=== PATIENT | male | born 2000 | race African-American/Black ===

== ENCOUNTER 2022-12-06 19:30 | Emergency (ER) | payer MEDICAID, SELFPAY ==
[2022-12-06 19:31] VITALS: BP 110/80; PULSE 85; RESP 16; TEMP 36.7; O2SAT 99
[2022-12-06 19:35] VITALS: BP 110/80; PULSE 85; RESP 16; O2SAT 99
--- NOTE | 2022-12-06 19:46 | EXP.UTC ---
Discharge Plan Disposition Chief Complaint: Wound/Laceration Referrals Follow up/Referrals: Provider,Referral, MD [Primary Care Provider] - See instructions Discharge ED Provider: Ta (ED)Rajinder [facility] General Stated complaint: ao 12/06, left arm laceration Mode of Arrival: Ambulatory Source of Information: Parent(s) Time Seen by Provider: 12/06/22 19:46 Description of Symptoms (Recalled from Triage Doc. by RN): mother states pt got ahold of picture frame and has a laceration to lt forearm History of Present Illness Provider Complaint: Mother states that she was told he took apart a picture frame and not sure what may have cut him but she suspects it was a staple that may have cut him on his left forearm States that she was not around him and another child came and got her and she noticed the laceration on his forearm and wrapped it up in a towel and brought him in Related Data Allergies Allergy/AdvReac Type Severity Reaction Status Date / Time No Known Allergies Allergy Verified 12/06/22 19:52 [facility] Disclaimer: The information contained in this section may have been updated after the patient was seen, as this information can be updated by other users. Social History Smoking Status: Unknown if ever smoked alcohol intake: never current occupational status: other Travel in the last 8 weeks: None ROS Obtained: Yes All systems reviewed & no additional complaints except as documented and Yes Systems reviewed as appropriate & no additional complaints except as documented Constitutional Constitutional: Reports system reviewed and no additional complaints, except as documented and Reports as per HPI ENT Ears, Nose, Mouth, and Throat: Reports system reviewed and no additional complaints, except as documented and Reports as per HPI Cardiovascular Cardiovascular: Reports system reviewed and no additional complaints, except as documented and Reports as per HPI Respiratory Respiratory: Reports system reviewed and no additional complaints, except as documented and Reports as per HPI Integumentary/Breasts Skin/Breast: Reports system reviewed and no additional complaints, except as documented and Reports as per HPI Comments: laceration to left forearm Physical Exam General General appearance: alert and in no apparent distress Respiratory Respiratory exam: Present normal lung sounds bilaterally; Absent respiratory distress or wheezes Cardiovascular Cardiovascular exam: Present regular rate, normal rhythm and normal heart sounds Expanded Upper Extremity Exam Left: L/R Arms Top View: 1. Approx 6cm laceration noted, that was gapped open with no active bleeding Neurological Exam Neurological exam: Present alert, oriented X3 and normal gait Medical Decision Making Lito Inquiry Pt receiving controlled substance: No Lito was queried for this patient: No Vital Signs: 12/06/22 19:35 Pulse Rate [Right] 85 Respiratory Rate 16 Blood Pressure [Right Arm] 110/80 Blood Pressure Mean [Right Arm] 90 02 Sat by Pulse Oximetry 99 Medical Decision Narrative: Patient has large laceration to left forearm that was gaped open and appeared to complex due to multiple layer skin evolvement and adipose tissue noted, therefore discussed with mother and will transfer back to the ED for further evaluation and closure Mother agreed Called ED spoke with Lashay and patient was moved to room 6
--- NOTE | 2022-12-06 19:52 | XR_ITS ---
PROCEDURE INFORMATION: Exam: XR Left Forearm Exam date and time: 12/06/2022 8:13 PM Age: 22 years old Clinical indication: Injury or trauma; Other: Laceration; Arm, lower; Left TECHNIQUE: Imaging protocol: Radiologic exam of the left forearm. Views: 2 views. COMPARISON: No relevant prior studies available. FINDINGS: Bones/joints: No acute fracture or dislocation. Soft tissues: 3.7 x 1.4 cm ovoid hypodensity along the ventral surface of the forearm. IMPRESSION: 3.7 x 1.4 cm ovoid hypodensity along the ventral surface of the forearm compatible with the provided history of trauma. Superimposed infection should be clinically excluded.
--- NOTE | 2022-12-06 20:25 | HMH.EDWNDL ---
Discharge Plan Disposition Patient Disposition: Home, Self-Care Chief Complaint: Wound/Laceration Referrals Follow up/Referrals: Provider,Referral, MD [Primary Care Provider] - See instructions Clinical Impressions Clinical Impression: Laceration Instructions Patient Instructions: DI for Laceration Repair Discharge ED Provider: Ta (ED),Rajinder Walker Wound/Laceration HPI General Chief Complaint: Wound/Laceration Stated Complaint: ao 12/06, left arm laceration Time Seen by Provider: 12/06/22 19:46 Mode of Arrival: Ambulatory Source of Information: Parent(s) Limitations: No Limitations Description of Symptoms (Recalled from ER Triage Doc. by RN): mother states pt got ahold of picture frame and has a laceration to lt forearm History of Present Illness HPI narrative: laceration lt forearm on edge or frame - no glass Onset (ago): hour(s) Extremity Location: Left: forearm Place: home Patient tetanus UTD: No Context: accidental Related Data Allergies Allergy/AdvReac Type Severity Reaction Status Date / Time No Known Allergies Allergy Verified 12/06/22 19:[address] [facility] Disclaimer: The information contained in this section may have been updated after the patient was seen, as this information can be updated by other users. Social History (Updated 12/06/22 @ 20:04 by Kamla George APRN) Smoking Status: Unknown if ever smoked alcohol intake: never current occupational status: other Travel in the last 8 weeks: None ROS Obtained: Yes All systems reviewed & no additional complaints except as documented Physical Exam General General appearance: alert and in no apparent distress Head Head exam: normocephalic Eye Eye exam: Present PERRL and EOMI ENT ENT exam: Present mucous membranes moist Neck Neck exam: Present trachea midline Respiratory Respiratory exam: Absent respiratory distress Cardiovascular Cardiovascular exam: Present regular rate Expanded Upper Extremity Exam Left: Forearm/Wrist exam: Present laceration (3 cm lac w/o tendon or fb involved = neurovascular ok ) Neuromotor exam: Normal wrist extension Vascular exam: Normal radial pulse Neurological Exam Neurological exam: Present alert and CN II-XII intact Skin Skin exam: Absent rash Medical Decision Making Medical Records Medical records reviewed: Yes I reviewed the patient's medical records. Lito Inquiry Pt receiving controlled substance: No Vital Signs: 12/06/22 19:35 12/06/22 19:31 Temperature 98.0 F Temperature Source Temporal Artery Scan Pulse Rate [Right] 85 85 Respiratory Rate 16 16 Blood Pressure [Right Arm] 110/80 110/80 Blood Pressure Mean [Right Arm] 90 90 02 Sat by Pulse Oximetry 99 99 Lab Data Lab results reviewed: Yes I reviewed the patient's lab results. Orders (Tests/Meds): ED MEDICATIONS Discontinued Medications Generic Name Dose Route Start Last Admin Trade Name Freq PRN Reason Stop Dose Admin Tetanus/Diphtheria Toxoids 0.5 ml 12/06/22 19:52 12/06/22 19:55 Tetanus-Diphth Toxoid, Adult 0.5ml Syr IM 12/06/22 19:53 0.5 ml .ONCE ONE Administration ORDERS Category Date Time Status XR forearm LT 2V Stat Exams 12/06/22 19:52 Taken Medical Decision Narrative: 3 cm lac lt forearm with neurovascular ok and no fb - closed with 4o nylon - sutures out 10-12 days Procedures Laceration Laceration 1: Site: upper extremity Side (If applicable): left Size (cm): 3 Description: linear Depth: involves subcutaneous layer Local Anesthetic: lidocaine 1% Amount of anesthesia used (mL): 7 Pre-repair: deep structures intact Skin layer closed with: nylon Size (cm): 4-0 Number of sutures: 10 Technique: simple, interrupted Critical Care Time Critical Care Time Critical Care Time: No Attestation: On 12/06/22, the high probability of a clinically significant, sudden or life threatenin
[2022-12-06 20:36] VITALS: BP 119/84; PULSE 79; RESP 16; TEMP 36.7; O2SAT 99
== END 2022-12-06 20:38 | disposition home or self-care (01) ==
LOC: ER 19:37 → UTC 19:39 → ER 19:44
PROVIDERS: Emergency Provider Emergency Medicine
DX: S51.821A Laceration with foreign body of right forearm, initial encounter (principal)
CPT/HCPCS: 12002; 73090; 90471; 90714; 99284

== ENCOUNTER 2022-12-07 08:05 | Emergency (ER) | payer MEDICAID, SELFPAY ==
--- NOTE | 2022-12-07 08:12 | PC.NURSE ---
Mother at BS; pt hooked to monitor to obtain vitals
[2022-12-07 08:16] VITALS: BP 146/82; PULSE 86; RESP 20; TEMP 36.8; O2SAT 100; BMI 19.3
--- NOTE | 2022-12-07 08:25 | PC.NURSE ---
BIJAN CRUZ at for patient eval
[2022-12-07 08:30] VITALS: BP 140/84; PULSE 89; RESP 16; O2SAT 100
--- NOTE | 2022-12-07 08:34 | HMH.EDGENADL ---
Discharge Plan Disposition Patient Disposition: Home, Self-Care Condition: Good Referrals Follow up/Referrals: Provider,Referral, [Primary Care Provider] - See instructions Clinical Impressions Clinical Impression: Laceration Discharge ED Provider: George Calderon General Adult HPI General Chief complaint: Recheck/Abnormal Lab/Rx Stated complaint: LT forearm suture ripped out Time Seen by Provider: 12/07/22 08:08 Mode of Arrival: Ambulatory Source of Information: Parent(s) Limitations: Language Barrier Description of Symptoms (Recalled from ER Triage Doc. by RN): pt to ed accompanied by mother. mother states pt had laceration repair to the left forearm last night and reports this morning pt pulled a couple out. bleeding controlled on arrival to ed. History of Present Illness HPI narrative: This is a 22-year-old male who is autistic and nonverbal and developmentally delayed presenting with laceration. Patient presented 1 day prior to arrival on 12/06 for laceration on his left proximal forearm after breaking glass from a frame on the wall. He was washed out, repaired, and sent home. Mother presents today because patient pulled out most of the stitches. No other trauma, no other concerns on full proximal review of systems, per mother and father. Related Data Allergies Allergy/AdvReac Type Severity Reaction Status Date / Time No Known Allergies Allergy Verified 12/06/22 19:52 [facility] Disclaimer: The information contained in this section may have been updated after the patient was seen, as this information can be updated by other users. Social History (Updated 12/06/22 @ 20:04 by Kamla George APRN) Smoking Status: Never smoker alcohol intake: never current occupational status: other Travel in the last 8 weeks: None ROS Obtained: Yes All systems reviewed & no additional complaints except as documented Physical Exam General General appearance: alert and in no apparent distress Head Head exam: atraumatic, normocephalic and normal inspection Eye Eye exam: Present normal appearance, PERRL and EOMI ENT ENT exam: Present normal exam, normal oropharynx, mucous membranes moist, TM's normal bilaterally and normal external ear exam Neck Neck exam: Present normal inspection, full ROM and trachea midline; Absent meningismus or lymphadenopathy Chest Chest inspection: Present normal inspection and symmetric chest wall rise; Absent tenderness Respiratory Respiratory exam: Present normal lung sounds bilaterally; Absent respiratory distress Cardiovascular Cardiovascular exam: Present regular rate and normal rhythm; Absent JVD Abdominal Exam Abdominal exam: Present soft and normal bowel sounds; Absent distention, tenderness or guarding Extremities Exam Extremities exam: Present normal inspection, full ROM and normal capillary refill; Absent calf tenderness Back Exam Back exam: Present normal inspection; Absent tenderness Neurological Exam Neurological exam: Present alert and other (at baseline, nonverbal) Psychiatric Psychiatric exam: Present normal affect and normal mood Skin Skin exam: Present warm, dry, normal color and other (3cm laceration on ventral aspect of L forearm. NV intact distally, no evidence of contamination or deeper involvement) Lymphatic Lymphatic Findings: no adenopathy Medical Decision Making Medical Records Medical records reviewed: Yes I reviewed the patient's medical records. Lito Inquiry Pt receiving controlled substance: No Lito was queried for this patient: No Vital Signs: 12/07/22 08:16 12/07/22 08:30 Temperature 98.2 F Temperature Source Temporal Artery Scan Pulse Rate 89 Pulse Rate [Left Radial] 86 Respiratory Rate 20 16 Blood Pressure 140/84 Blood Pressure [Right Arm] 146/82 H Blood Pressure Mean 102 Blood Pressure Mean [Right Arm] 103 02 Sat by Pulse Oximetry 100 100 Oxygen Delivery Method Room Air Orders (Tests/Meds): ED MEDICATIONS Di
--- NOTE | 2022-12-07 10:12 | PC.NURSE ---
pt restless in bed,parents @ bs
--- NOTE | 2022-12-07 10:24 | PC.NURSE ---
BIJAN CRUZ at BS to suture; Nicole Baez Alexa and Noreen at BS to assist.
[2022-12-07 10:41] VITALS: BP 141/88; PULSE 82; RESP 20; TEMP 36.7; O2SAT 100
== END 2022-12-07 10:42 | disposition home or self-care (01) ==
PROVIDERS: Emergency Provider Emergency Medicine
DX: S01.81XA Laceration without foreign body of other part of head, initial encounter (principal)
CPT/HCPCS: 12002; 12001; 96372; 99284

== ENCOUNTER 2022-12-19 19:23 | Emergency (ER) | payer MEDICAID, SELFPAY ==
[2022-12-19 19:39] VITALS: BP 127/84; PULSE 89; RESP 17; TEMP 36.7; O2SAT 100; BMI 19.9
[2022-12-19 19:40] VITALS: BP 127/84; PULSE 89; RESP 17; TEMP 36.7
== END 2022-12-19 19:41 | disposition home or self-care (01) ==
PROVIDERS: Emergency Provider Nurse Practitioner Family
DX: Z48.02 Encounter for removal of sutures (principal)
CPT/HCPCS: 99211; G0463

== ENCOUNTER 2025-03-30 08:57 | Outpatient (RCR) | payer MEDICAID, SELFPAY ==
--- NOTE | 2025-03-30 11:22 | HMH.OTOPEV ---
OT Inpatient Evaluation Rehab OT Outpatient Eval Start: 03/30/25 10:53 Freq: Status: Active Protocol: Document 03/30/25 10:53 LIDIA (Rec: 03/30/25 11:22 [facility] [id number][facility] E-signed By Dean Florian, OT Outpatient Therapy Subjective History Subjective History Pt is a 24 year old male who reports to therapy for initial evaluation accompanied by his mother. Pt has official diagnosis of Autism and is being evaluated due to developmental delay of scholastic skills. Mother is patients main caregiver and his with him 14/04. He does have a younger sibling and father whom he also lives with. Pt has not had therapy services for years according to mother. His last time receiving skilled therapy was in middle school; he also had Home health OT and attended [facility] for OT as a child. Pt is non verbal. Mother reports he is able to dress himself and manipulate buttons, zippers, and snaps; unable to tie shoes. He can feed himself, but does not use utensils only his hands. Mother explains he is a very good eater and likes a wide variety of food. He is unable to bathe himself. He is not toilet trained. Mother completes all IADLS due to safety concerns with things like cooking. If pt is hungry he is able to go retrieve food independently, but is unable to fix simple meals such as a sandwich. Mother does not allow him to use stove safety. Pt is unable to write, trace, or color. Therapist did have patient attempt scribbling and he was able to hold marker with immature static tripod and make scribbling garcia but would quickly put marker down and demonstrated no interest. Pt unable to imitate simple shapes. Mother also reports he does not use scissors and she is unsure if he is able to. Pt has recently started behavioral therapy due to an increase in behaviors at home. Mother reports there has been times where he becomes aggressive and has hit or thrown items. Usually when he is upset he stops, walks away, and slams doors. Short term goals: 1. Client will independently squeeze tongs/scissors/ tweezers to chicken picker and release small objects with 80% accuracy to demonstrate improved pre-scissor skills OR grasping skills. 2. Client will independently use one hand to open and close scissors and snip paper with 80% accuracy to develop and refine scissor skills using appropriate hand positioning 3. Client will independently color a simple 3?? shape within ??? of the boundary for 80% of the shape to demonstrate motor control needed for prewriting skills. 4. Client will be able to color inside a boundary, going outside the line no more than 1/2 inch and coloring in at least 90% of the white in 3/4 trials. 5. Client able to imitate pre writing strokes (vertical , horizontal, and tolowa dee-ni') with minimal assistance, in 3 /4 trials. 6. SPOON: Client will independently grasp a spoon with a functional grasp pattern and use spoon to transfer media into a container with minimal spillage 80% of opportunities to demonstrate improved fine motor control for self-feeding. 7. MEAL PREP: complete simple meal prep following written instructions with Rufino to demonstrate increased executive functioning and IADL ind. 8. Client will follow 2 step verbal directions without use of visual cues or gestures with 80% accuracy, independently to demonstrate improved attention skills and organization of auditory input. Fpc goals: Short term goals: 1. Client will independently squeeze tongs/scissors/ tweezers to chicken picker and release small objects with 90% accuracy to demonstrate improved pre-scissor skills OR grasping skills. 2. Client will independently use one hand to open and close scissors and snip paper with 90% accuracy to develop and refine scissor skills using appropriate hand positioning 3. Client will independently color a simple 5?? shape within 1/4?? of the boundary for 80% of the shape to demonstrate motor control needed for prewriting skills. 4. Client will be able to color inside a boundary, going outside the line no more than 1/4 inch and coloring in at least 90% of the white in 3/4 trials. 5. Client able to imitate pre writing strokes (vertical , horizontal, and tolowa dee-ni') with minimal assistance, in 4 /4 trials. 6. SPOON: Client will independently grasp a spoon with a functional grasp pattern and use spoon to transfer media into a container with minimal spillage 90% of opportunities to demonstrate improved fine motor control for self-feeding. 7. MEAL PREP: complete simple meal prep following written instructions with SBA to demonstrate increased executive functioning and IADL ind. 8. Client will follow 2 step verbal directions without use of visual cues or gestures with 90% accuracy, independently to demonstrate improved attention skills and organization of auditory input. New diagnosis of No cancer in past 12 months? OT Outpatient Assessment Impairments Problems/Impairments Impaired Shower/Bathing,Impaired Household Care, Impaired Recreational Activities,Impaired Self Care/ Self Management Prognosis Rehab Potential Good Clinical Impression Consistent with Yes Diagnosis Outpatient Therapy Plan of Care Treatment Plan May Include Therapeutic Exercise Yes Including Home Exercise Program ADL/Self Care Yes Education Frequency Times per week 1 Duration Number of Weeks 12 Addendums This patient is a No candidate for social or vocational rehab ? Patient/Guardian Yes verbally acknowledges understanding of treatment program and consents to further treatment? Patient/Guardian Yes verbally acknowledges understanding of diagnosis, prognosis and goals for treatment? Eval Complexity OT Charge 41305 - Moderate Complexity Shoulder/Elbow Eval Shoulder Objective Measurements Elbow Objective Measurements PHYSICIAN CERTIFICATION: I certify the specified therapy services for Lincoln Rosario are required, authorized, and reviewed every 30 days.
== END 2025-03-30 23:59 | disposition home or self-care (01) ==
LOC: OT 08:57
PROVIDERS: PCP Nurse Practitioner Family; Visit Provider Nurse Practitioner Family
DX: F84.0 Autistic disorder (principal); F81.89 Other developmental disorders of scholastic skills; F80.9 Developmental disorder of speech and language, unspecified
CPT/HCPCS: 97166

== ENCOUNTER 2025-03-30 08:59 | Outpatient (RCR) | payer MEDICAID, SELFPAY ==
--- NOTE | 2025-03-30 16:49 | HMH.SLAPHASI ---
Speech & Language Evaluation Speech/Language Aphasia Evaluation Start: 03/30/25 16:05 Freq: once Status: Complete Protocol: Document 03/30/25 16:05 LA (Rec: 03/30/25 16:48 LA [id number]) Aphasia Assessment/Goals/Plan Assessment Date of Evaluation: 03/30/25 Evaluation Type Initial Certification Assessment/Problems aac, delayed speech, developmental nonverbal disorder per MD order Does Patient Qualify Yes for Service Qualify/Failure Based on results of the criterion-referenced assessment Comment , clinical observations made throughout evaluation, and parent interview, Tina would benefit from skilled speech therapy services 1x/week for 12 weeks in order to address severe mixed language disorder, as well as improve verbal expression and auditory comprehension in multiple environments. Short term goals listed in Additional Evaluations at bottom of report. Plan Pt will be seen # 1 times/week for # weeks 12 Anticipate reaching 8 STG in # weeks Anticipate reaching 12 LTG in # weeks Pt/Guardian verbally Yes ack understanding of dx/prognosis/ goals G -code Required No Correction Goals Increase auditory Yes: 70 comprehension skills to communicate w/ family & friends Increase verbal Yes: 70 expression skills to communicate w/ family & friends. Education Instructions BARBACK discussed results of criterion-based assessment and provided POC with mother who expressed understanding. Pt/Caregiver Able to Able to recall/restate Recall Information Reinforcement needed No Speech & Language HPI History Present Illness Description of Tina is a pleasant 24 year old male presenting to Patient Problem [facility] Outpatient Rehab Services for a skilled speech- language evaluation. He was accompanied by his mother who provided his history. Enricos PMHx includes autism and allergies. Tina is primarily non-verbal, and to communicate will often use gestures, facial expressions, and sometimes sounds. His mother noticed the problem first when Tina was a toddler. Tina has received previous speech therapy services in the [facility] and [facility], however has not received any services in many years. Mother reports she would like to see Tina be more independent and receive an AAC device . Rehab Services Speech therapy Assessed Is this evaluation r No /t stroke? Therapy History Seen by other SL Yes therapists Who/When/ [facility] and [facility] therapy services many years Recommendations ago per mother report. Other Specialists? Yes Who/When/ Seen for skilled OT evaluation at [facility] Outpatient Rehab Recommendations 03/30/25. Previously seen for OT and behavioral therapy in [facility] and [facility]. Aphasia Evaluations Additional Evaluation(s) Additional Tests The Communication Matrix, is considered to be an evidence-based authentic assessment tool, based on descriptions of the person?s behaviors to determine how the person is communicating using multiple modalities. The Matrix accommodates any type of communicative behavior, including Augmentative and Alternative Communication (AAC). The Communication Matrix is organized into two main components: Four Reasons to Communicate and Seven Levels of Communication. Communicative behaviors are deemed to either be Emerging or Mastered. Emerging skills are considered to be if the person does this inconsistently, only does the behavior when prompted or encouraged to do so, only does this in one or two contexts, or with one person. Mastered skills are considered to be if the person does this independently most of the time when the opportunity arises, does this in a number of different contexts, and with different people. Tina's scores are as follows: Seven Levels of Communication: Level 1 Pre-Intentional Behavior- 3/3 mastered Level 2 Intentional Behavior- 4/4 mastered Level 3 Unconventional Behavior- 7/8 mastered Level 4 Conventional Behavior- 12/03 mastered Level 5 [place] Symbols- 0/17 mastered Level 6 Abstract Symbols- 0/17 mastered Level 7 Language- 0/17 mastered TOTAL SCORE - 37 (maximum = 160) PERCENTAGE- 23% Short term goals: 1. Tina will participate in AAC trialing for 3 consecutive sessions as measured by tri-monthly progress reports. 2. Tina will request 3+ times per session utilizing total communication (verbalization, gesture, picture, etc.) as measured by tri-monthly progress notes. 3. Tina will label 3+ common nouns per session utilizing total communication (verbalization, gesture, picture, etc.) as measured by tri-monthly progress notes. 4. Tina will protest 3+ times per session utilizing total communication (verbalization, gesture, picture, etc.) as measured by tri-monthly progress notes. PHYSICIAN CERTIFICATION: I certify the specified therapy services for Lincoln Rosario are required, authorized, and reviewed every 30 days.
== END 2025-03-30 23:59 | disposition home or self-care (01) ==
LOC: ST 08:59
PROVIDERS: Visit Provider Nurse Practitioner Family
DX: F80.9 Developmental disorder of speech and language, unspecified (principal); F81.89 Other developmental disorders of scholastic skills; F84.0 Autistic disorder
CPT/HCPCS: 92523